=== PATIENT | male | born 1940 | race Caucasian/White ===

== ENCOUNTER → 2016-09-21 | Outpatient (CLI) | payer MEDICARE, MEDICAID ==
[2016-09-21 13:27] LABS: MEAN CORPUSCULAR HEMOGLOBIN 30.8 pg (27.0-33.0); MEAN CORPUSCULAR HGB CONC 32.4 g/dl (32.0-36.5); MEAN CORPUSCULAR VOLUME 94.9 fl (80.0-96.0); RED CELL DISTRIBUTION WIDTH 12.5 % (11.5-14.5); WHITE BLOOD COUNT 8.2 K/mm3 (4.0-10.0)
[2016-09-21 13:55] LABS: ALBUMIN 3.9 GM/DL (3.2-5.2); ALBUMIN/GLOBULIN RATIO 1.08 (1.00-1.93); ALKALINE PHOSPHATASE 96 U/L (45-117); ALT/SGPT 19 U/L (12-78); ANION GAP 10 MEQ/L (8-16); AST/SGOT 18 U/L (15-37); BILIRUBIN,TOTAL 0.4 MG/DL (0.2-1.0); BLOOD UREA NITROGEN 27 MG/DL (7-18); CALCIUM LEVEL 9.2 MG/DL (8.8-10.2); CARBON DIOXIDE LEVEL 30 MEQ/L (21-32); CHLORIDE LEVEL 99 MEQ/L (98-107); CHOLESTEROL LEVEL 175 MG/DL (<200); CREATININE FOR GFR 1.03 MG/DL (0.70-1.30); GLOMERULAR FILTRATION RATE > 60.0 (>42); GLUCOSE, FASTING 99 MG/DL (83-110); POTASSIUM SERUM 4.5 MEQ/L (3.5-5.1); SODIUM LEVEL 139 MEQ/L (136-145); TOTAL PROTEIN 7.5 GM/DL (6.4-8.2); TRIGLYCERIDES LEVEL 101 MG/DL (<150)
== END ==
LOC: M WUC 09:03
PROVIDERS: ATTEND Internal Medicine
DX: I10 Essential (primary) hypertension (principal); E78.5 Hyperlipidemia, unspecified

== ENCOUNTER → 2016-10-05 | Outpatient (CLI) | payer MEDICARE, MEDICAID ==
[2016-10-05 09:18] LABS: MEAN CORPUSCULAR HEMOGLOBIN 31.3 pg (27.0-33.0); MEAN CORPUSCULAR HGB CONC 34.1 g/dl (32.0-36.5); MEAN CORPUSCULAR VOLUME 91.9 fl (80.0-96.0); RED CELL DISTRIBUTION WIDTH 12.3 % (11.5-14.5); WHITE BLOOD COUNT 7.3 K/mm3 (4.0-10.0)
[2016-10-05 09:43] LABS: ALBUMIN 3.6 GM/DL (3.2-5.2); ALBUMIN/GLOBULIN RATIO 0.95 (1.00-1.93); ALKALINE PHOSPHATASE 101 U/L (45-117); ALT/SGPT 31 U/L (12-78); ANION GAP 7 MEQ/L (8-16); AST/SGOT 16 U/L (15-37); BILIRUBIN,TOTAL 0.4 MG/DL (0.2-1.0); BLOOD UREA NITROGEN 20 MG/DL (7-18); CALCIUM LEVEL 8.7 MG/DL (8.8-10.2); CARBON DIOXIDE LEVEL 31 MEQ/L (21-32); CHLORIDE LEVEL 101 MEQ/L (98-107); CHOLESTEROL LEVEL 143 MG/DL (<200); CREATININE FOR GFR 0.96 MG/DL (0.70-1.30); GLOMERULAR FILTRATION RATE > 60.0 (>42); GLUCOSE, FASTING 111 MG/DL (83-110); POTASSIUM SERUM 3.7 MEQ/L (3.5-5.1); SODIUM LEVEL 139 MEQ/L (136-145); TOTAL PROTEIN 7.4 GM/DL (6.4-8.2); TRIGLYCERIDES LEVEL 119 MG/DL (<150)
== END ==
LOC: M WUC 08:12
PROVIDERS: ATTEND Nurse Practitioner Family
DX: I10 Essential (primary) hypertension (principal); E78.5 Hyperlipidemia, unspecified; J44.9 Chronic obstructive pulmonary disease, unspecified; E66.9 Obesity, unspecified

== ENCOUNTER → 2017-09-30 | Outpatient (CLI) | payer MEDICARE, MEDICAID ==
[2017-09-30 09:15] LABS: ESTIMATED AVERAGE GLUCOSE 126 MG/DL (60-110)
[2017-09-30 09:19] LABS: HEMATOCRIT 44.7 % (42.0-52.0); HEMOGLOBIN 14.8 g/dl (14.0-18.0); MEAN CORPUSCULAR HEMOGLOBIN 30.8 pg (27.0-33.0); MEAN CORPUSCULAR HGB CONC 33.1 g/dl (32.0-36.5); MEAN CORPUSCULAR VOLUME 93.1 fl (80.0-96.0); PLATELET COUNT, AUTOMATED 296 10^3/uL (150-450); RED CELL DISTRIBUTION WIDTH 13.1 % (11.5-14.5); WHITE BLOOD COUNT 10.8 10^3/uL (4.0-10.0)
[2017-09-30 09:30] LABS: ALBUMIN 3.7 GM/DL (3.2-5.2); ALBUMIN/GLOBULIN RATIO 0.93 (1.00-1.93); ALKALINE PHOSPHATASE 91 U/L (45-117); ALT/SGPT 30 U/L (12-78); ANION GAP 7 MEQ/L (8-16); AST/SGOT 15 U/L (7-37); BILIRUBIN,TOTAL 0.4 MG/DL (0.2-1.0); BLOOD UREA NITROGEN 21 MG/DL (7-18); CALCIUM LEVEL 8.7 MG/DL (8.8-10.2); CARBON DIOXIDE LEVEL 31 MEQ/L (21-32); CHLORIDE LEVEL 100 MEQ/L (98-107); CHOLESTEROL LEVEL 183 MG/DL (<200); GLOMERULAR FILTRATION RATE > 60.0 (>42); GLUCOSE, FASTING 101 MG/DL (70-100); HDL CHOLESTEROL 50 MG/DL (>40); LDL CHOLESTEROL 101.8 MG/DL (<100); NON-HDL-C 133 MG/DL; PROSTATIC SPECIFIC AG MONITOR 0.35 NG/ML (< 4.0); SODIUM LEVEL 138 MEQ/L (136-145); TOTAL PROTEIN 7.7 GM/DL (6.4-8.2); TRIGLYCERIDES LEVEL 156 MG/DL (<150)
== END ==
LOC: M LAB 08:31
DX: I10 Essential (primary) hypertension (principal); R53.83 Other fatigue; E03.9 Hypothyroidism, unspecified
CPT/HCPCS: 71046

== ENCOUNTER → 2019-05-25 | Outpatient (CLI) | payer MEDICARE ==
--- NOTE | 2019-05-25 13:57 | REP ---
Two-view chest: 05/25/2019. Indication: Preoperative assessment. Comparison: 09/30/2017. Findings: The lungs are clear. There is no pleural effusion or pneumothorax. Cardiac silhouette is at the upper limits of normal but otherwise unremarkable. Multilevel degenerative sequelae of the thoracic spine are present. Exaggerated thoracic kyphosis is additionally noted. Impression: No acute cardiopulmonary process. Electronically Signed by Todd Hilliard DO 05/25/2019 01:48 P
[2019-05-25 13:58] LABS: HEMATOCRIT 44.9 % (42.0-52.0); HEMOGLOBIN 14.7 g/dl (13.5-17.5); MEAN CORPUSCULAR HEMOGLOBIN 31.7 pg (27.0-33.0); MEAN CORPUSCULAR HGB CONC 32.7 g/dl (32.0-36.5); PLATELET COUNT, AUTOMATED 309 10^3/uL (150-450); RED BLOOD COUNT 4.63 10^6/uL (4.30-6.10); WHITE BLOOD COUNT 10.1 10^3/uL (4.0-10.0)
[2019-05-25 14:09] LABS: INR 1.15; PROTHROMBIN TIME 14.4 SECONDS (11.8-14.0)
[2019-05-25 14:35] LABS: ALBUMIN 3.7 GM/DL (3.2-5.2); ALT/SGPT 28 U/L (12-78); BILIRUBIN,TOTAL 0.5 MG/DL (0.2-1.0); BLOOD UREA NITROGEN 32 MG/DL (7-18); CALCIUM LEVEL 9.2 MG/DL (8.8-10.2); CARBON DIOXIDE LEVEL 29 MEQ/L (21-32); CHLORIDE LEVEL 104 MEQ/L (98-107); CHOLESTEROL LEVEL 173 MG/DL (<200); CHOLESTEROL RISK RATIO 3.145 (<5); CREATININE FOR GFR 1.18 MG/DL (0.70-1.30); GLOMERULAR FILTRATION RATE > 60.0 (>42); GLUCOSE, FASTING 88 MG/DL (70-100); HDL CHOLESTEROL 55 MG/DL (>40); LDL CHOLESTEROL 95 MG/DL (<100); NON-HDL-C 118 MG/DL; POTASSIUM SERUM 4.4 MEQ/L (3.5-5.1); SODIUM LEVEL 139 MEQ/L (136-145); TOTAL PROTEIN 7.8 GM/DL (6.4-8.2); TRIGLYCERIDES LEVEL 117 MG/DL (<150)
--- NOTE | 2019-05-25 15:15 | ECGEPIP ---
[facility] Test Date: 2019-05-25 Pat Name: ALEXEI SALAZAR Department: Room: - Gender: Male Roving Department End Finder: CATIA : [id number] Requested By: Alla Hutton Order Number: [id number] Reading MD: Rani Hdez Measurements Intervals [place] Rate: 43 P: 53 MA: 172 QRS: 23 QRSD: 100 T: 17 QT: 452 QTc: 383 Interpretive Statements SINUS BRADYCARDIA SIMILAR TO 09/30/17 Electronically Signed on 05-25-2019 15:15:37 EST by Rani Hdez
== END ==
LOC: M LAB 12:46
PROVIDERS: ATTEND Family Medicine
DX: I10 Essential (primary) hypertension (principal); Z79.01 Long term (current) use of anticoagulants

== ENCOUNTER → 2020-05-16 | Outpatient (CLI) | payer MEDICARE ==
[2020-05-16 10:21] LABS: HEMATOCRIT 43.3 % (42.0-52.0); HEMOGLOBIN 14.1 g/dl (13.5-17.5); MEAN CORPUSCULAR HEMOGLOBIN 31.2 pg (27.0-33.0); MEAN CORPUSCULAR HGB CONC 32.6 g/dl (32.0-36.5); MEAN CORPUSCULAR VOLUME 95.8 fl (80.0-96.0); PLATELET COUNT, AUTOMATED 292 10^3/uL (150-450); RED BLOOD COUNT 4.52 10^6/uL (4.30-6.10); WHITE BLOOD COUNT 7.9 10^3/uL (4.0-10.0)
[2020-05-16 10:48] LABS: HEMOGLOBIN A1c 5.8 %
[2020-05-16 11:06] LABS: ALBUMIN 3.9 GM/DL (3.2-5.2); ALT/SGPT 22 U/L (12-78); BILIRUBIN,TOTAL 0.5 MG/DL (0.2-1.0); BLOOD UREA NITROGEN 18 MG/DL (7-18); CARBON DIOXIDE LEVEL 29 MEQ/L (21-32); CHLORIDE LEVEL 102 MEQ/L (98-107); CHOLESTEROL LEVEL 164 MG/DL (<200); GLOMERULAR FILTRATION RATE > 60.0 (>42); GLUCOSE, FASTING 104 MG/DL (70-100); HDL CHOLESTEROL 50 MG/DL (>40); LDL CHOLESTEROL 86 MG/DL (<100); NON-HDL-C 114 MG/DL; POTASSIUM SERUM 4.1 MEQ/L (3.5-5.1); PROSTATIC SPECIFIC AG MONITOR 0.44 NG/ML (< 4.00); SODIUM LEVEL 137 MEQ/L (136-145); TOTAL PROTEIN 7.6 GM/DL (6.4-8.2); TRIGLYCERIDES LEVEL 142 MG/DL (<150)
[2020-05-16 11:20] LABS: TESTOSTERONE 95 NG/DL (241-827)
== END ==
LOC: M WUC 08:09
PROVIDERS: ATTEND Family Medicine
DX: I10 Essential (primary) hypertension (principal); R53.83 Other fatigue; E03.9 Hypothyroidism, unspecified; Z12.5 Encounter for screening for malignant neoplasm of prostate

== ENCOUNTER → 2021-08-22 | Outpatient (CLI) | payer MEDICARE ==
[2021-08-22 11:44] LABS: HEMATOCRIT 49.5 % (42.0-52.0); HEMOGLOBIN 15.7 g/dl (13.5-17.5); MEAN CORPUSCULAR HEMOGLOBIN 30.8 pg (27.0-33.0); MEAN CORPUSCULAR HGB CONC 31.7 g/dl (32.0-36.5); MEAN CORPUSCULAR VOLUME 97.1 fl (80.0-96.0); PLATELET COUNT, AUTOMATED 355 10^3/uL (150-450); WHITE BLOOD COUNT 8.9 10^3/uL (4.0-10.0)
[2021-08-22 12:20] LABS: ALBUMIN 3.5 GM/DL (3.2-5.2); ALT/SGPT 32 U/L (12-78); BILIRUBIN,TOTAL 0.4 MG/DL (0.2-1.0); BLOOD UREA NITROGEN 18 MG/DL (7-18); CALCIUM LEVEL 9.2 MG/DL (8.8-10.2); CARBON DIOXIDE LEVEL 31 MEQ/L (21-32); CHLORIDE LEVEL 102 MEQ/L (98-107); CHOLESTEROL LEVEL 144 MG/DL (<200); CHOLESTEROL RISK RATIO 3.428 (<5); CREATININE FOR GFR 0.86 MG/DL (0.70-1.30); GLOMERULAR FILTRATION RATE > 60.0 (>35); GLUCOSE, FASTING 118 MG/DL (70-100); HDL CHOLESTEROL 42 MG/DL (>40); LDL CHOLESTEROL 85 MG/DL (<100); NON-HDL-C 102 MG/DL; POTASSIUM SERUM 4.2 MEQ/L (3.5-5.1); PROSTATIC SPECIFIC AG MONITOR 0.59 NG/ML (< 4.00); SODIUM LEVEL 140 MEQ/L (136-145); TESTOSTERONE 144 NG/DL (241-827); TOTAL PROTEIN 7.8 GM/DL (6.4-8.2); TRIGLYCERIDES LEVEL 85 MG/DL (<150)
[2021-08-22 13:14] LABS: HEMOGLOBIN A1c 5.9 %
== END ==
LOC: M WUC 08:06
PROVIDERS: ATTEND Family Medicine
DX: I10 Essential (primary) hypertension (principal); R97.20 Elevated prostate specific antigen [PSA]

== ENCOUNTER 2021-11-30 10:24 | Inpatient (IN) | payer MEDICARE ==
[~2021-11-30] VITALS: Ht 172.7 cm; Wt 95.5 kg
[2021-11-30 11:14] LABS: BASO % 0.5 % (0.0-1.0); EOS # 0.1 10^3/uL (0.0-0.5); EOS % 1.3 % (0.0-3.0); HEMATOCRIT 45.5 % (42.0-52.0); HEMOGLOBIN 15.4 g/dl (13.5-17.5); LYMPH # 1.6 10^3/uL (1.5-5.0); LYMPH % 19.9 % (24.0-44.0); MEAN CORPUSCULAR HEMOGLOBIN 31.2 pg (27.0-33.0); MEAN CORPUSCULAR HGB CONC 33.8 g/dl (32.0-36.5); MEAN CORPUSCULAR VOLUME 92.3 fl (80.0-96.0); MONO # 0.5 10^3/uL (0.0-0.8); NEUTROPHILS # 5.7 10^3/uL (1.5-8.5); NEUTROPHILS % 71.9 % (36.0-66.0); PLATELET COUNT, AUTOMATED 280 10^3/uL (150-450); RED BLOOD COUNT 4.93 10^6/uL (4.30-6.10)
[2021-11-30] MEDS ORDERED: ISOVUE-370 76% 100ML VIAL As Ordered ONE (11:28)
[2021-11-30 11:33] LABS: INR 1.13; PARTIAL THROMBOPLASTIN TIME 31.1 SECONDS (25.9-37.0); PROTHROMBIN TIME 14.9 SECONDS (12.7-14.5)
[2021-11-30 11:41] LABS: CK-MB VALUE MASS 1.1 NG/ML (<3.6); MB/CK RELATIVE INDEX 2.34 (< OR =4)
[2021-11-30 11:50] LABS: BLOOD UREA NITROGEN 13 MG/DL (7-18); CALCIUM LEVEL 8.9 MG/DL (8.8-10.2); CARBON DIOXIDE LEVEL 27 MEQ/L (21-32); CHLORIDE LEVEL 103 MEQ/L (98-107); CREATININE FOR GFR 0.96 MG/DL (0.70-1.30); GLOMERULAR FILTRATION RATE > 60.0 (>35); GLUCOSE, FASTING 109 MG/DL (70-100); POTASSIUM SERUM 4.9 MEQ/L (3.5-5.1); SODIUM LEVEL 138 MEQ/L (136-145)
[2021-11-30] MEDS ORDERED: SIMV20TA22 PO (12:50)
[2021-11-30] MEDS ORDERED: LISI20TA37 PO (12:50)
[2021-11-30] MEDS ORDERED: ALBU8.5H INH (12:50)
[2021-11-30] MEDS ORDERED: ATEN50TA2 PO (12:50)
[2021-11-30] MEDS ORDERED: AMLO1TAB24 PO (12:50)
[2021-11-30] MEDS ORDERED: HOME MED LIST COMPLETE! XX SCH (12:55)
[2021-11-30] MEDS ORDERED: ATORVASTATIN 20 MG TAB PO ONE (14:05)
[2021-11-30] MEDS ORDERED: ASPIRIN 325 MG TAB PO ONE (14:05)
[2021-11-30] MEDS ORDERED: amLODIPine 5 MG TAB PO ONE (14:10)
[2021-11-30] MEDS ORDERED: REMDESIVIR 200 MG in NS 250 ML IV ONE (15:00)
[2021-11-30 15:07] LABS: INR 1.04
[2021-11-30 15:08] LABS: PARTIAL THROMBOPLASTIN TIME 30.7 SECONDS (25.9-37.0)
[2021-11-30 15:19] LABS: HEMOGLOBIN A1c 5.9 %
[2021-11-30 15:27] LABS: CHOLESTEROL RISK RATIO 2.72 (<5); THYROID STIMULATING HORMONE 1.83 uIU/ML (0.358-3.740)
[2021-11-30] MEDS ORDERED: SODIUM CHLORIDE 0.9% INJ 10 ML SYR IV ONE (17:00)
[2021-11-30 18:13] VITALS: BP 193/85
[2021-11-30 19:35] VITALS: BP 145/74
[2021-11-30] MEDS: ALBUTEROL 90 MCG/ACT 8GM HFA INHALER INH SCH (20:00)
[2021-11-30] MEDS: HEPARIN SOD (PORCINE) 5000UNITS/ML 1ML VIAL/SYRINGE SC SCH (21:22)
[2021-11-30 23:31] VITALS: BP 145/84
[2021-12-01 04:08] VITALS: BP 157/89
[2021-12-01] MEDS: HEPARIN SOD (PORCINE) 5000UNITS/ML 1ML VIAL/SYRINGE SC SCH (05:52)
[2021-12-01 06:37] VITALS: BP 184/81
[2021-12-01 07:10] LABS: HEMATOCRIT 48.2 % (42.0-52.0); HEMOGLOBIN 15.9 g/dl (13.5-17.5); MEAN CORPUSCULAR HEMOGLOBIN 29.9 pg (27.0-33.0); MEAN CORPUSCULAR VOLUME 90.6 fl (80.0-96.0); PLATELET COUNT, AUTOMATED 243 10^3/uL (150-450); RED BLOOD COUNT 5.32 10^6/uL (4.30-6.10); WHITE BLOOD COUNT 9.6 10^3/uL (4.0-10.0)
[2021-12-01 07:34] LABS: ALBUMIN 3.8 GM/DL (3.2-5.2); ALT/SGPT 20 U/L (12-78); BILIRUBIN,DIRECT 0.3 MG/DL (0.0-0.2); BLOOD UREA NITROGEN 13 MG/DL (7-18); CALCIUM LEVEL 9.7 MG/DL (8.8-10.2); CARBON DIOXIDE LEVEL 26 MEQ/L (21-32); CHLORIDE LEVEL 101 MEQ/L (98-107); CREATININE FOR GFR 0.92 MG/DL (0.70-1.30); GLOMERULAR FILTRATION RATE > 60.0 (>35); GLUCOSE, FASTING 113 MG/DL (70-100); MAGNESIUM LEVEL 2.1 MG/DL (1.8-2.4); PHOSPHORUS LEVEL 3.7 MG/DL (2.5-4.9); POTASSIUM SERUM 3.8 MEQ/L (3.5-5.1); SODIUM LEVEL 136 MEQ/L (136-145)
[2021-12-01 07:59] VITALS: BP 138/87
[2021-12-01] MEDS: ALBUTEROL 90 MCG/ACT 8GM HFA INHALER INH SCH ×4 (08:00→20:50)
[2021-12-01] MEDS: ASPIRIN 81MG ENTERIC TABLET PO SCH (08:18)
[2021-12-01] MEDS: ATORVASTATIN 20 MG TAB PO SCH (08:19)
[2021-12-01] MEDS: amLODIPine 5 MG TAB PO SCH (08:19)
[2021-12-01 11:52] VITALS: BP 140/68
[2021-12-01] MEDS: ENOXAPARIN 100MG/1ML SYRINGE (J1650 PER 10MG) SC SCH (13:37)
[2021-12-01 14:41] LABS: FOLATE 8.3 NG/ML (>5.4)
[2021-12-01] MEDS: SODIUM CHLORIDE 0.9% INJ 10 ML SYR IV SCH (15:43)
[2021-12-01] MEDS: REMDESIVIR 100 MG in NS 250 ML IV SCH (15:43)
[2021-12-01 16:17] VITALS: BP 149/67
[2021-12-01 20:00] VITALS: BP 133/70
[2021-12-02] VITALS (7 sets, daily range): BP systolic 131–163; BP diastolic 62–78
[2021-12-02] MEDS: ENOXAPARIN 100MG/1ML SYRINGE (J1650 PER 10MG) SC SCH (01:20)
[2021-12-02 08:01] LABS: HEMATOCRIT 46.7 % (42.0-52.0); HEMOGLOBIN 15.6 g/dl (13.5-17.5); MEAN CORPUSCULAR HEMOGLOBIN 30.3 pg (27.0-33.0); MEAN CORPUSCULAR HGB CONC 33.4 g/dl (32.0-36.5); MEAN CORPUSCULAR VOLUME 90.7 fl (80.0-96.0); PLATELET COUNT, AUTOMATED 198 10^3/uL (150-450); RED BLOOD COUNT 5.15 10^6/uL (4.30-6.10); WHITE BLOOD COUNT 9.1 10^3/uL (4.0-10.0)
[2021-12-02 08:19] LABS: INR 1.35; PROTHROMBIN TIME 17.1 SECONDS (12.7-14.5)
[2021-12-02 08:24] LABS: BLOOD UREA NITROGEN 15 MG/DL (7-18); CALCIUM LEVEL 9.4 MG/DL (8.8-10.2); CARBON DIOXIDE LEVEL 24 MEQ/L (21-32); CHLORIDE LEVEL 103 MEQ/L (98-107); CREATININE FOR GFR 0.82 MG/DL (0.70-1.30); GLOMERULAR FILTRATION RATE > 60.0 (>35); GLUCOSE, FASTING 100 MG/DL (70-100); MAGNESIUM LEVEL 2.2 MG/DL (1.8-2.4); POTASSIUM SERUM 3.2 MEQ/L (3.5-5.1); SODIUM LEVEL 137 MEQ/L (136-145)
[2021-12-02] MEDS: ALBUTEROL 90 MCG/ACT 8GM HFA INHALER INH SCH ×3 (08:27→13:46)
[2021-12-02] MEDS ORDERED: POTASSIUM CHLORIDE 10MEQ SR TABLET PO ONE (10:50)
[2021-12-02] MEDS ORDERED: APIXABAN 5 MG TAB (ELIQUIS) PO SCH (12:00)
[2021-12-02] MEDS ORDERED: ATOR1TAB21 PO (12:59)
[2021-12-02] MEDS ORDERED: ASPI-551 PO (12:59)
[2021-12-02] MEDS ORDERED: ELIQ5TAB PO (12:59)
[2021-12-02] MEDS ORDERED: BLOOKIT XX (13:02)
[2021-12-02] MEDS: ATORVASTATIN 20 MG TAB PO SCH (13:18)
[2021-12-02] MEDS: ASPIRIN 81MG ENTERIC TABLET PO SCH (13:18)
[2021-12-02] MEDS: amLODIPine 5 MG TAB PO SCH (13:18)
[2021-12-02] MEDS: REMDESIVIR 100 MG in NS 250 ML IV SCH (13:19)
[2021-12-02] MEDS: SODIUM CHLORIDE 0.9% INJ 10 ML SYR IV SCH (13:19)
== END 2021-12-02 15:10 | disposition home health service (06) | DRG 64 ==
LOC: M ED 10:24 → M ED INP 13:44 → ENRESERV 16:03 → M 4MAIN 18:19
PROVIDERS: ADMIT Internal Medicine; ATTEND Internal Medicine
PROC: XW033E5 Introduction of Remdesivir Anti-infective into Peripheral Vein, Percutaneous Approach, New Technology Group 5 (ICD-10-PCS; principal; 2021-11-30)
DX: I63.512 Cerebral infarction due to unspecified occlusion or stenosis of left middle cerebral artery (principal); U07.1 COVID-19; J96.10 Chronic respiratory failure, unspecified whether with hypoxia or hypercapnia; I16.1 Hypertensive emergency; I10 Essential (primary) hypertension; E78.5 Hyperlipidemia, unspecified; I48.91 Unspecified atrial fibrillation; I65.23 Occlusion and stenosis of bilateral carotid arteries; Z79.01 Long term (current) use of anticoagulants; Z79.82 Long term (current) use of aspirin; Z79.899 Other long term (current) drug therapy; R47.89 Other speech disturbances

== ENCOUNTER → 2022-05-17 | Outpatient (CLI) | payer MEDICARE ==
[~2022-05-17] MED LIST: ALBU8.5H INH; AMLO1TAB24 PO; ASPI-551 PO; ATEN50TA2 PO; ATOR1TAB21 PO; BLOOKIT XX; ELIQ5TAB PO; LISI20TA37 PO; SIMV20TA22 PO
[2022-05-17 12:33] LABS: HEMATOCRIT 43.7 % (42.0-52.0); HEMOGLOBIN 14.1 g/dl (13.5-17.5); MEAN CORPUSCULAR HEMOGLOBIN 32.3 pg (27.0-33.0); MEAN CORPUSCULAR HGB CONC 32.3 g/dl (32.0-36.5); MEAN CORPUSCULAR VOLUME 100.2 fl (80.0-96.0); PLATELET COUNT, AUTOMATED 301 10^3/uL (150-450); RED BLOOD COUNT 4.36 10^6/uL (4.30-6.10); WHITE BLOOD COUNT 10.3 10^3/uL (4.0-10.0)
[2022-05-17 14:13] LABS: ALBUMIN 3.5 GM/DL (3.2-5.2); ALT/SGPT 22 U/L (12-78); BILIRUBIN,TOTAL 0.7 MG/DL (0.2-1.0); BLOOD UREA NITROGEN 14 MG/DL (7-18); CALCIUM LEVEL 8.9 MG/DL (8.8-10.2); CARBON DIOXIDE LEVEL 31 MEQ/L (21-32); CHLORIDE LEVEL 102 MEQ/L (98-107); CHOLESTEROL LEVEL 132 MG/DL (<200); CHOLESTEROL RISK RATIO 2.588 (<5); GLOMERULAR FILTRATION RATE > 60.0 (>35); GLUCOSE, FASTING 93 MG/DL (70-100); HDL CHOLESTEROL 51 MG/DL (>40); LDL CHOLESTEROL 66 MG/DL (<100); NON-HDL-C 81 MG/DL; POTASSIUM SERUM 3.9 MEQ/L (3.5-5.1); PROSTATIC SPECIFIC AG MONITOR 0.36 NG/ML (< 4.00); SODIUM LEVEL 139 MEQ/L (136-145); TOTAL PROTEIN 7.4 GM/DL (6.4-8.2); TRIGLYCERIDES LEVEL 75 MG/DL (<150)
[2022-05-17 15:52] LABS: HEMOGLOBIN A1c 5.6 %
[2022-05-17 18:43] LABS: TOTAL 25(OH) VITAMIN D 20.4 NG/ML (30.0-100.0)
== END ==
LOC: M WUC 10:32
PROVIDERS: ATTEND Family Medicine
DX: E11.9 Type 2 diabetes mellitus without complications (principal); R53.83 Other fatigue; R97.20 Elevated prostate specific antigen [PSA]

== ENCOUNTER → 2022-08-13 | Outpatient (CLI) | payer MEDICARE ==
[2022-08-13 11:56] LABS: HEMOGLOBIN 14.7 g/dl (13.5-17.5); MEAN CORPUSCULAR HEMOGLOBIN 30.9 pg (27.0-33.0); MEAN CORPUSCULAR HGB CONC 32.7 g/dl (32.0-36.5); MEAN CORPUSCULAR VOLUME 94.5 fl (80.0-96.0); PLATELET COUNT, AUTOMATED 312 10^3/uL (150-450); RED BLOOD COUNT 4.76 10^6/uL (4.30-6.10); WHITE BLOOD COUNT 10.5 10^3/uL (4.0-10.0)
[2022-08-13 12:09] LABS: INR 1.09; PROTHROMBIN TIME 14.3 SECONDS (12.5-14.5)
[2022-08-13 12:31] LABS: ALBUMIN 3.9 G/DL (3.2-5.2); ALKALINE PHOSPHATASE 111 U/L (46-116); ALT/SGPT 14 U/L (7.0-40); AST/SGOT 18 U/L (<34); BLOOD UREA NITROGEN 19 MG/DL (9-23); CALCIUM LEVEL 9.5 MG/DL (8.3-10.6); CARBON DIOXIDE LEVEL 29 MMOL/L (20-31); CHLORIDE LEVEL 100 MMOL/L (98-107); CREATININE FOR GFR 0.77 MG/DL (0.70-1.30); GLOMERULAR FILTRATION RATE > 60.0 (>35); GLUCOSE, FASTING 108 MG/DL (74-106); POTASSIUM SERUM 3.9 MMOL/L (3.5-5.1); SODIUM LEVEL 138 MMOL/L (136-145); THYROID STIMULATING HORMONE 1.871 uIU/ML (0.55-4.78); TOTAL PROTEIN 7.6 G/DL (5.7-8.2)
== END ==
LOC: M RAD 11:13
PROVIDERS: ATTEND Family Medicine
DX: J44.9 Chronic obstructive pulmonary disease, unspecified (principal); E07.9 Disorder of thyroid, unspecified; Z12.5 Encounter for screening for malignant neoplasm of prostate; Z79.01 Long term (current) use of anticoagulants
CPT/HCPCS: 36415; 71046; 80053; 84443; 85027; 85610; 93005; G0103

== ENCOUNTER → 2022-08-22 | Outpatient (REF) | payer MEDICARE, MEDICAID ==
[2022-08-22 13:38] LABS: APPEARANCE, URINE MANUAL CLEAR (CLEAR); COLOR, URINE MANUAL DK YELLOW (YELLOW)
[2022-08-22 13:40] LABS: BILIRUBIN, URINE MANUAL 2+ (NEGATIVE); GLUCOSE, URINE (UA) MANUAL NEGATIVE (NEGATIVE); KETONE, URINE MANUAL 1+ mg/dL (NEGATIVE); NITRITE, URINE MANUAL NEGATIVE (NEGATIVE); PROTEIN, URINE MANUAL TRACE mg/dL (NEGATIVE); UROBILINOGEN, URINE MANUAL 4 MG mg/dl (NORMAL)
[2022-08-22 13:41] LABS: BLOOD URINE MANUAL TRACE (NEGATIVE); LEUKOCYTE ESTERASE, URINE MAN TRACE (NEGATIVE)
[2022-08-22 14:47] LABS: BACTERIA, URINE SMALL AMOUNT; HYALINE CAST, URINE NONE SEEN /lpf (0-1); MUCUS, URINE MOD AMOUNT (NEGATIVE); SQUAMOUS EPITHELIAL CELL URINE SMALL AMOUNT /hpf (SMALL AMT)
== END ==
LOC: M SMT 13:02
PROVIDERS: ATTEND Physician Assistant
DX: R82.89 Other abnormal findings on cytological and histological examination of urine (principal); R31.0 Gross hematuria

== ENCOUNTER → 2022-09-05 | Outpatient (CLI) | payer MEDICARE, MEDICAID ==
[~2022-09-05] MED LIST changes: +ISOVUE-370 76% 100ML VIAL As Ordered ONE
== END ==
LOC: M RAD 07:32
PROVIDERS: ATTEND Physician Assistant
DX: R31.9 Hematuria, unspecified (principal)
CPT/HCPCS: 74178; Q9967

== ENCOUNTER → 2022-09-10 | Outpatient (REF) | payer MEDICARE, MEDICAID ==
[~2022-09-10] MED LIST changes: -ISOVUE-370 76% 100ML VIAL As Ordered ONE
[2022-09-10 14:03] LABS: APPEARANCE, URINE HAZY (CLEAR); BACTERIA, URINE AUTO 1+ (NEGATIVE); BILIRUBIN, URINE AUTO NEGATIVE (NEGATIVE); BLOOD, URINE BLOOD 3+ (NEGATIVE); COLOR, URINE YELLOW (YELLOW); GLUCOSE, URINE (UA) AUTO NEGATIVE (NEGATIVE); KETONE, URINE AUTO NEGATIVE (NEGATIVE); LEUKOCYTE ESTERASE, URINE AUTO NEGATIVE (NEGATIVE); MUCUS, URINE SMALL (NEGATIVE); NITRITE, URINE AUTO NEGATIVE (NEGATIVE); PROTEIN, URINE AUTO NEGATIVE (NEGATIVE); RBC, URINE AUTO TNTC /HPF (0-3); SPECIFIC GRAVITY URINE AUTO 1.013 (1.002-1.035); SQUAMOUS EPITHELIAL CELL UR AU 0 /HPF (0-6); UROBILINOGEN, URINE AUTO 0.2 mg/dL (0.0-2.0); WBC, URINE AUTO 2 /HPF (0-3)
== END ==
LOC: M SMT 13:11
PROVIDERS: ATTEND Urology
DX: R31.0 Gross hematuria (principal)

== ENCOUNTER → 2022-09-20 | Outpatient (CLI) | payer MEDICARE, MEDICAID | LOC: M LABSMTC 09:17 | DX: Z01.812 Encounter for preprocedural laboratory examination (principal); Z20.822 Contact with and (suspected) exposure to COVID-19; K86.89 Other specified diseases of pancreas ==

== ENCOUNTER → 2022-10-09 | Outpatient (REF) | payer MEDICARE, MEDICAID ==
[~2022-10-09] MED LIST changes: +CITA20TA6 PO; +ERGO500029; +TAMS1CAP17
[2022-10-09 18:22] LABS: APPEARANCE, URINE CLEAR (CLEAR); BACTERIA, URINE AUTO NEGATIVE (NEGATIVE); BILIRUBIN, URINE AUTO NEGATIVE (NEGATIVE); BLOOD, URINE BLOOD NEGATIVE (NEGATIVE); COLOR, URINE YELLOW (YELLOW); GLUCOSE, URINE (UA) AUTO NEGATIVE (NEGATIVE); KETONE, URINE AUTO NEGATIVE (NEGATIVE); LEUKOCYTE ESTERASE, URINE AUTO NEGATIVE (NEGATIVE); NITRITE, URINE AUTO NEGATIVE (NEGATIVE); PROTEIN, URINE AUTO NEGATIVE (NEGATIVE); RBC, URINE AUTO 0 /HPF (0-3); SPECIFIC GRAVITY URINE AUTO 1.011 (1.002-1.035); SQUAMOUS EPITHELIAL CELL UR AU 0 /HPF (0-6); UROBILINOGEN, URINE AUTO 0.2 mg/dL (0.0-2.0); WBC, URINE AUTO 0 /HPF (0-3)
== END ==
LOC: M SMT 17:34
PROVIDERS: ATTEND Urology
DX: R31.0 Gross hematuria (principal)

== ENCOUNTER → 2022-10-10 | Outpatient (CLI) | payer MEDICARE, MEDICAID ==
[~2022-10-10] MED LIST changes: -CITA20TA6 PO
[2022-10-10 08:19] LABS: BLOOD UREA NITROGEN 26 MG/DL (9-23); CREATININE FOR GFR 0.93 MG/DL (0.70-1.30); GLOMERULAR FILTRATION RATE > 60.0 (>35)
== END ==
LOC: M LAB 07:01
PROVIDERS: ATTEND Nurse Practitioner Family
DX: C25.9 Malignant neoplasm of pancreas, unspecified (principal)

== ENCOUNTER → 2022-10-12 | Outpatient (CLI) | payer MEDICARE, MEDICAID ==
[~2022-10-12] MED LIST changes: +GASTROGRAFIN SOLUTION 30ML As Ordered ONE; +ISOVUE-370 76% 100ML VIAL As Ordered ONE
== END ==
LOC: M RAD 08:15
PROVIDERS: ATTEND Nurse Practitioner Family
DX: C25.9 Malignant neoplasm of pancreas, unspecified (principal)
CPT/HCPCS: 71260; 74178; Q9963; Q9967

== ENCOUNTER → 2022-10-18 | Outpatient (CLI) | payer MEDICARE, MEDICAID ==
[~2022-10-18] MED LIST changes: -GASTROGRAFIN SOLUTION 30ML As Ordered ONE; -ISOVUE-370 76% 100ML VIAL As Ordered ONE
== END ==
LOC: M ONCR 10:48
PROVIDERS: ATTEND General Practice
DX: C25.2 Malignant neoplasm of tail of pancreas (principal); I48.91 Unspecified atrial fibrillation; E78.5 Hyperlipidemia, unspecified; I10 Essential (primary) hypertension; Z79.01 Long term (current) use of anticoagulants; Z79.82 Long term (current) use of aspirin; Z79.899 Other long term (current) drug therapy; Z87.891 Personal history of nicotine dependence

== ENCOUNTER → 2022-11-14 | Outpatient (CLI) | payer MEDICARE, MEDICAID ==
[~2022-11-14] VITALS: Ht 165.1 cm; Wt 95.3 kg
[~2022-11-14] MED LIST changes: +CITA20TA6 PO; +LIDOCAINE 1% MDV 20ML VIAL As Ordered ONE; +MIDAZOLAM INJ 2MG/2ML VIAL As Ordered ONE; +NS 1,000 ML IV SCH; +ceFAZolin 2 GM/D5W 50 ML IV BAG As Ordered ONE; +ceFAZolin SOD 2 GM in IV 1 EA IV ONE; +diphenhydrAMINE 50MG/ML VIAL As Ordered ONE; +fentaNYL 100 MCG/2 ML INJECTION As Ordered ONE
[2022-11-14 15:00] VITALS: BP 121/68
== END ==
LOC: M IRPRO 10:28
PROVIDERS: ATTEND Internal Medicine Hematology & Oncology
DX: C25.9 Malignant neoplasm of pancreas, unspecified (principal)
CPT/HCPCS: 36561; 99152; 99153; C1769; C1788; C1894; J0690; J2250; J3010

== ENCOUNTER → 2022-12-11 | Outpatient (POV) | payer MEDICARE, MEDICAID ==
[~2022-12-11] VITALS: Ht 167.6 cm; Wt 95.0 kg
[~2022-12-11] MED LIST changes: +AMOX875T2 PO; -LIDOCAINE 1% MDV 20ML VIAL As Ordered ONE; -MIDAZOLAM INJ 2MG/2ML VIAL As Ordered ONE; -NS 1,000 ML IV SCH; -ceFAZolin 2 GM/D5W 50 ML IV BAG As Ordered ONE; -ceFAZolin SOD 2 GM in IV 1 EA IV ONE; -diphenhydrAMINE 50MG/ML VIAL As Ordered ONE; -fentaNYL 100 MCG/2 ML INJECTION As Ordered ONE
[2022-12-11 15:00] VITALS: BP 117/71
== END ==
LOC: M IRPOV 14:52
PROVIDERS: ATTEND Radiology Diagnostic Radiology
DX: Z45.2 Encounter for adjustment and management of vascular access device (principal)

== ENCOUNTER → 2023-01-04 | Outpatient (REF) | payer MEDICARE, MEDICAID | LOC: M SFHCWOUN 16:11 | PROVIDERS: ATTEND Surgery | DX: S21.101A Unspecified open wound of right front wall of thorax without penetration into thoracic cavity, initial encounter (principal); X58.XXXA Exposure to other specified factors, initial encounter; Y92.9 Unspecified place or not applicable; Y93.9 Activity, unspecified; Y99.9 Unspecified external cause status ==

== ENCOUNTER → 2023-01-07 | Outpatient (CLI) | payer MEDICARE, MEDICAID | LOC: M RAD 14:33 | PROVIDERS: ATTEND Surgery | DX: S21.101A Unspecified open wound of right front wall of thorax without penetration into thoracic cavity, initial encounter (principal) ==

== ENCOUNTER → 2023-02-07 | Outpatient (CLI) | payer MEDICARE, MEDICAID ==
[~2023-02-07] MED LIST changes: +CAPE1TAB2 PO; +XELO150T PO
== END ==
LOC: M ONCR 10:41
PROVIDERS: ATTEND General Practice
DX: C25.2 Malignant neoplasm of tail of pancreas (principal); Z87.891 Personal history of nicotine dependence; Z92.21 Personal history of antineoplastic chemotherapy; Z79.01 Long term (current) use of anticoagulants; Z79.899 Other long term (current) drug therapy; Z71.2 Person consulting for explanation of examination or test findings

== ENCOUNTER 2023-02-20 16:00 | Emergency (ER) | payer MEDICARE, MEDICAID ==
[~2023-02-20] VITALS: Ht 167.6 cm; Wt 85.5 kg
[2023-02-20 16:43] LABS: BASO # 0.1 10^3/uL (0.0-0.2); BASO % 0.6 % (0.0-1.0); EOS # 0.4 10^3/uL (0.0-0.5); HEMATOCRIT 33.1 % (42.0-52.0); HEMOGLOBIN 11.1 g/dl (13.5-17.5); LYMPH # 1.9 10^3/uL (1.5-5.0); LYMPH % 15.2 % (24.0-44.0); MEAN CORPUSCULAR HEMOGLOBIN 31.6 pg (27.0-33.0); MEAN CORPUSCULAR HGB CONC 33.5 g/dl (32.0-36.5); MEAN CORPUSCULAR VOLUME 94.3 fl (80.0-96.0); MONO # 1.3 10^3/uL (0.0-0.8); MONO % 10.1 % (2.0-8.0); NEUTROPHILS # 8.8 10^3/uL (1.5-8.5); NEUTROPHILS % 70.6 % (36.0-66.0); PLATELET COUNT, AUTOMATED 287 10^3/uL (150-450); RED BLOOD COUNT 3.51 10^6/uL (4.30-6.10); WHITE BLOOD COUNT 12.5 10^3/uL (4.0-10.0)
[2023-02-20 17:04] LABS: BLOOD UREA NITROGEN 24 MG/DL (9-23); CALCIUM LEVEL 9.1 MG/DL (8.3-10.6); CARBON DIOXIDE LEVEL 28 MMOL/L (20-31); CHLORIDE LEVEL 98 MMOL/L (98-107); CREATININE FOR GFR 1.15 MG/DL (0.70-1.30); GLOMERULAR FILTRATION RATE > 60.0 (>35); GLUCOSE, FASTING 98 MG/DL (74-106); POTASSIUM SERUM 4.4 MMOL/L (3.5-5.1); SODIUM LEVEL 134 MMOL/L (136-145)
[2023-02-20 18:00] VITALS: BP 138/81; TEMP 97.1; O2SAT 99
== END 2023-02-20 18:06 | disposition home or self-care (01) ==
LOC: EDBD 16:00 → M ED 16:00
DX: C25.9 Malignant neoplasm of pancreas, unspecified (principal); S09.90XA Unspecified injury of head, initial encounter; W18.30XA Fall on same level, unspecified, initial encounter; Y92.009 Unspecified place in unspecified non-institutional (private) residence as the place of occurrence of the external cause; Z87.891 Personal history of nicotine dependence; Z79.899 Other long term (current) drug therapy
CPT/HCPCS: 11042; 36415; G0463

== ENCOUNTER → 2023-03-14 | Outpatient (RCR) | payer MEDICARE, MEDICAID ==
[~2023-03-14] MED LIST changes: +ONDA8TAB8 PO; +PROC10TA5 PO
== END ==
LOC: M ONCR 02-15 09:54
PROVIDERS: ATTEND General Practice
DX: Z51.0 Encounter for antineoplastic radiation therapy (principal); C25.2 Malignant neoplasm of tail of pancreas

== ENCOUNTER 2023-03-28 10:10 | Emergency (ER) | payer MEDICARE, MEDICAID | END 2023-03-28 11:36 | disposition home or self-care (01) | LOC: M ED 10:10 | DX: S09.90XA Unspecified injury of head, initial encounter (principal); W19.XXXA Unspecified fall, initial encounter; I10 Essential (primary) hypertension; E78.5 Hyperlipidemia, unspecified; C25.9 Malignant neoplasm of pancreas, unspecified; Z86.79 Personal history of other diseases of the circulatory system; Z87.891 Personal history of nicotine dependence; Z79.52 Long term (current) use of systemic steroids; Z79.02 Long term (current) use of antithrombotics/antiplatelets; Z79.811 Long term (current) use of aromatase inhibitors; Z79.01 Long term (current) use of anticoagulants; Z79.899 Other long term (current) drug therapy ==

== ENCOUNTER 2023-04-16 09:44 | Outpatient (RCR) | payer MEDICARE, MEDICAID | END 2023-05-14 | LOC: M ONCR 09:44 | PROVIDERS: ATTEND General Practice | DX: Z51.0 Encounter for antineoplastic radiation therapy (principal); C25.2 Malignant neoplasm of tail of pancreas ==

== ENCOUNTER 2023-04-16 10:49 | Emergency (ER) | payer MEDICARE, MEDICAID ==
[~2023-04-16] VITALS: Ht 167.6 cm; Wt 83.6 kg
[2023-04-16 11:41] LABS: HEMATOCRIT 30.1 % (42.0-52.0); HEMOGLOBIN 10.2 g/dl (13.5-17.5); MEAN CORPUSCULAR HGB CONC 33.9 g/dl (32.0-36.5); MEAN CORPUSCULAR VOLUME 97.4 fl (80.0-96.0); PLATELET COUNT, AUTOMATED 144 10^3/uL (150-450); RED BLOOD COUNT 3.09 10^6/uL (4.30-6.10); WHITE BLOOD COUNT 6.3 10^3/uL (4.0-10.0)
[2023-04-16 11:56] LABS: INR 1.85; PROTHROMBIN TIME 20.9 SECONDS (12.5-14.5)
[2023-04-16 12:43] VITALS: TEMP 96.6; O2SAT 99
[2023-04-16 12:47] VITALS: BP 134/78
== END 2023-04-16 13:23 | disposition home or self-care (01) ==
LOC: M ED 10:49
DX: L89.319 Pressure ulcer of right buttock, unspecified stage (principal); L89.329 Pressure ulcer of left buttock, unspecified stage; I10 Essential (primary) hypertension; I48.91 Unspecified atrial fibrillation; C25.9 Malignant neoplasm of pancreas, unspecified; Z87.891 Personal history of nicotine dependence; Z79.01 Long term (current) use of anticoagulants; Z79.899 Other long term (current) drug therapy; Z79.51 Long term (current) use of inhaled steroids

== ENCOUNTER 2023-04-23 11:27 | Emergency (ER) | payer MEDICARE, MEDICAID ==
[~2023-04-23] VITALS: Ht 167.6 cm; Wt 86.3 kg
[2023-04-23 12:17] LABS: BASO % 0.7 % (0.0-1.0); EOS # 0.2 10^3/uL (0.0-0.5); EOS % 2.8 % (0.0-3.0); HEMATOCRIT 30.2 % (42.0-52.0); HEMOGLOBIN 9.9 g/dl (13.5-17.5); LYMPH # 0.6 10^3/uL (1.5-5.0); LYMPH % 10.3 % (24.0-44.0); MEAN CORPUSCULAR HEMOGLOBIN 33.1 pg (27.0-33.0); MEAN CORPUSCULAR HGB CONC 32.8 g/dl (32.0-36.5); MONO # 0.6 10^3/uL (0.0-0.8); NEUTROPHILS % 74.8 % (36.0-66.0); PLATELET COUNT, AUTOMATED 152 10^3/uL (150-450); RED BLOOD COUNT 2.99 10^6/uL (4.30-6.10); WHITE BLOOD COUNT 5.4 10^3/uL (4.0-10.0)
[2023-04-23 12:32] LABS: INR 1.72; PROTHROMBIN TIME 19.7 SECONDS (12.5-14.5)
[2023-04-23 12:33] LABS: PARTIAL THROMBOPLASTIN TIME 36.2 SECONDS (24.8-34.2)
[2023-04-23 12:54] LABS: ALBUMIN 2.8 G/DL (3.2-5.2); ALKALINE PHOSPHATASE 116 U/L (46-116); ALT/SGPT 24 U/L (7.0-40); AST/SGOT 25 U/L (<34); BILIRUBIN,DIRECT 0.5 MG/DL (<0.4); BILIRUBIN,TOTAL 0.9 MG/DL (0.3-1.2); BLOOD UREA NITROGEN 11 MG/DL (9-23); CALCIUM LEVEL 8.6 MG/DL (8.3-10.6); CARBON DIOXIDE LEVEL 26 MMOL/L (20-31); CHLORIDE LEVEL 107 MMOL/L (98-107); CREATININE FOR GFR 0.65 MG/DL (0.70-1.30); GLOMERULAR FILTRATION RATE > 60.0 (>35); GLUCOSE, FASTING 131 MG/DL (74-106); POTASSIUM SERUM 3.9 MMOL/L (3.5-5.1); SODIUM LEVEL 142 MMOL/L (136-145); TOTAL PROTEIN 5.9 G/DL (5.7-8.2)
[2023-04-23 15:35] VITALS: TEMP 96.6
[2023-04-23 15:53] VITALS: BP 154/75; O2SAT 99
== END 2023-04-23 16:04 | disposition home or self-care (01) ==
LOC: M ED 11:27 → EDBD 11:27 → M ED 16:04
DX: L89.319 Pressure ulcer of right buttock, unspecified stage (principal); L89.329 Pressure ulcer of left buttock, unspecified stage; R55 Syncope and collapse; Z79.899 Other long term (current) drug therapy; Z79.01 Long term (current) use of anticoagulants; I10 Essential (primary) hypertension; J44.9 Chronic obstructive pulmonary disease, unspecified; N40.0 Benign prostatic hyperplasia without lower urinary tract symptoms; Z85.07 Personal history of malignant neoplasm of pancreas; M54.9 Dorsalgia, unspecified; Z79.82 Long term (current) use of aspirin; Z79.51 Long term (current) use of inhaled steroids

== ENCOUNTER 2023-05-30 09:41 | Inpatient (IN) | payer MEDICARE, MEDICAID ==
[~2023-05-30] VITALS: Ht 165.1 cm; Wt 85.5 kg
[~2023-05-30 09:41] MED LIST changes: -ERGO500029; +ERGO500029 PO; -TAMS1CAP17; +TAMS1CAP17 PO
[2023-05-30 11:12] LABS: HEMATOCRIT 31.2 % (42.0-52.0); MEAN CORPUSCULAR HEMOGLOBIN 32.7 pg (27.0-33.0); MEAN CORPUSCULAR HGB CONC 32.1 g/dl (32.0-36.5); PLATELET COUNT, AUTOMATED 268 10^3/uL (150-450); RED BLOOD COUNT 3.06 10^6/uL (4.30-6.10); WHITE BLOOD COUNT 9.5 10^3/uL (4.0-10.0)
[2023-05-30 11:29] LABS: BLOOD UREA NITROGEN 11 MG/DL (9-23); CALCIUM LEVEL 8.2 MG/DL (8.3-10.6); CARBON DIOXIDE LEVEL 27 MMOL/L (20-31); CHLORIDE LEVEL 104 MMOL/L (98-107); GLOMERULAR FILTRATION RATE > 60.0 (>35); GLUCOSE, FASTING 117 MG/DL (74-106); POTASSIUM SERUM 3.9 MMOL/L (3.5-5.1); SODIUM LEVEL 139 MMOL/L (136-145)
[2023-05-30] MEDS ORDERED: MED REC IN PROGRESS XX SCH (15:00)
[2023-05-30] MEDS ORDERED: ACETAMINOPHEN TAB 650MG DOSE (2X325MG) PO PRN (15:30)
[2023-05-30] MEDS ORDERED: MOM 30ML SUSPENSION UDC PO PRN (15:30)
[2023-05-30] MEDS ORDERED: ONDA8TAB8 PO (16:39)
[2023-05-30] MEDS ORDERED: ELIQ5TAB PO (16:46)
[2023-05-30] MEDS ORDERED: ASPI81TA26 PO (16:47)
[2023-05-30] MEDS ORDERED: ATOR1TAB21 PO (16:48)
[2023-05-30] MEDS ORDERED: HOME MED LIST COMPLETE! XX SCH (16:55)
[2023-05-30 17:20] VITALS: BP 151/72; TEMP 97.3; O2SAT 98
[2023-05-30] MEDS ORDERED: ONDANSETRON 4MG ORAL DISINTEGRATING TAB PO PRN (18:35)
[2023-05-30] MEDS: DOCUSATE SODIUM 100MG CAPSULE PO SCH (19:41)
[2023-05-30] MEDS: NYSTATIN 100,000 UNITS/GM TOPICAL PWD 15GM TOP SCH (19:44)
[2023-05-30] MEDS: ALBUTEROL 90 MCG/ACT 8GM HFA INHALER INH SCH (20:45)
[2023-05-30 20:50] VITALS: BP 150/73; TEMP 97.5; O2SAT 98
[2023-05-30] MEDS ORDERED: ENOXAPARIN 40MG/0.4ML SYRINGE (J1650 PER 10MG) SC SCH (21:00)
[2023-05-31 05:54] VITALS: BP 128/68; TEMP 97.5; O2SAT 95
[2023-05-31 06:01] LABS: HEMATOCRIT 27.3 % (42.0-52.0); HEMOGLOBIN 8.9 g/dl (13.5-17.5); MEAN CORPUSCULAR HEMOGLOBIN 32.5 pg (27.0-33.0); MEAN CORPUSCULAR HGB CONC 32.6 g/dl (32.0-36.5); MEAN CORPUSCULAR VOLUME 99.6 fl (80.0-96.0); PLATELET COUNT, AUTOMATED 215 10^3/uL (150-450); RED BLOOD COUNT 2.74 10^6/uL (4.30-6.10); WHITE BLOOD COUNT 9.2 10^3/uL (4.0-10.0)
[2023-05-31 06:21] LABS: BLOOD UREA NITROGEN 10 MG/DL (9-23); CALCIUM LEVEL 7.6 MG/DL (8.3-10.6); CARBON DIOXIDE LEVEL 28 MMOL/L (20-31); CHLORIDE LEVEL 108 MMOL/L (98-107); CREATININE FOR GFR 0.56 MG/DL (0.70-1.30); GLOMERULAR FILTRATION RATE > 60.0 (>35); GLUCOSE, FASTING 105 MG/DL (74-106); POTASSIUM SERUM 3.5 MMOL/L (3.5-5.1); SODIUM LEVEL 144 MMOL/L (136-145)
[2023-05-31] MEDS: TAMSULOSIN 0.4 MG CAP PO SCH (08:04)
[2023-05-31] MEDS: NYSTATIN 100,000 UNITS/GM TOPICAL PWD 15GM TOP SCH ×2 (08:04→21:52)
[2023-05-31] MEDS: DOCUSATE SODIUM 100MG CAPSULE PO SCH ×2 (08:04→21:52)
[2023-05-31] MEDS: CitaloPRAM (CeleXA) 20 MG TAB PO SCH (08:04)
[2023-05-31] MEDS: ATORVASTATIN 20 MG TAB PO SCH (08:04)
[2023-05-31] MEDS ORDERED: ASPIRIN 81MG ENTERIC TABLET PO SCH (09:00)
[2023-05-31] MEDS: ALBUTEROL 90 MCG/ACT 8GM HFA INHALER INH SCH ×4 (09:35→19:04)
[2023-05-31 14:00] VITALS: BP 144/82; TEMP 97.3; O2SAT 97
[2023-05-31 21:40] VITALS: BP 128/64; TEMP 97.5; O2SAT 96
[2023-06-01 05:40] VITALS: BP 145/79; TEMP 97.2; O2SAT 100
[2023-06-01 06:08] LABS: HEMATOCRIT 29.6 % (42.0-52.0); HEMOGLOBIN 9.5 g/dl (13.5-17.5); MEAN CORPUSCULAR HEMOGLOBIN 32.1 pg (27.0-33.0); MEAN CORPUSCULAR HGB CONC 32.1 g/dl (32.0-36.5); PLATELET COUNT, AUTOMATED 227 10^3/uL (150-450); RED BLOOD COUNT 2.96 10^6/uL (4.30-6.10); WHITE BLOOD COUNT 11.5 10^3/uL (4.0-10.0)
[2023-06-01 06:42] LABS: BLOOD UREA NITROGEN 12 MG/DL (9-23); CALCIUM LEVEL 7.8 MG/DL (8.3-10.6); CARBON DIOXIDE LEVEL 26 MMOL/L (20-31); CHLORIDE LEVEL 108 MMOL/L (98-107); CREATININE FOR GFR 0.51 MG/DL (0.70-1.30); GLOMERULAR FILTRATION RATE > 60.0 (>35); GLUCOSE, FASTING 100 MG/DL (74-106); POTASSIUM SERUM 3.7 MMOL/L (3.5-5.1); SODIUM LEVEL 141 MMOL/L (136-145)
[2023-06-01] MEDS: ALBUTEROL 90 MCG/ACT 8GM HFA INHALER INH SCH ×4 (08:22→19:13)
[2023-06-01] MEDS: TAMSULOSIN 0.4 MG CAP PO SCH (08:29)
[2023-06-01] MEDS: CitaloPRAM (CeleXA) 20 MG TAB PO SCH (08:29)
[2023-06-01] MEDS: ENOXAPARIN 40MG/0.4ML SYRINGE (J1650 PER 10MG) SC SCH (08:29)
[2023-06-01] MEDS: ATORVASTATIN 20 MG TAB PO SCH (08:29)
[2023-06-01] MEDS: DOCUSATE SODIUM 100MG CAPSULE PO SCH ×2 (08:29→20:06)
[2023-06-01] MEDS: NYSTATIN 100,000 UNITS/GM TOPICAL PWD 15GM TOP SCH ×2 (08:30→20:06)
[2023-06-02 05:10] VITALS: BP 147/85; TEMP 97.3; O2SAT 96
[2023-06-02 06:26] LABS: HEMATOCRIT 27.5 % (42.0-52.0); MEAN CORPUSCULAR HEMOGLOBIN 32.6 pg (27.0-33.0); MEAN CORPUSCULAR HGB CONC 32.7 g/dl (32.0-36.5); MEAN CORPUSCULAR VOLUME 99.6 fl (80.0-96.0); PLATELET COUNT, AUTOMATED 220 10^3/uL (150-450); RED BLOOD COUNT 2.76 10^6/uL (4.30-6.10)
[2023-06-02 06:44] LABS: BLOOD UREA NITROGEN 11 MG/DL (9-23); CALCIUM LEVEL 7.6 MG/DL (8.3-10.6); CARBON DIOXIDE LEVEL 26 MMOL/L (20-31); CHLORIDE LEVEL 110 MMOL/L (98-107); CREATININE FOR GFR 0.56 MG/DL (0.70-1.30); GLOMERULAR FILTRATION RATE > 60.0 (>35); GLUCOSE, FASTING 101 MG/DL (74-106); POTASSIUM SERUM 3.6 MMOL/L (3.5-5.1); SODIUM LEVEL 143 MMOL/L (136-145)
[2023-06-02] MEDS: ALBUTEROL 90 MCG/ACT 8GM HFA INHALER INH SCH ×4 (08:07→19:19)
[2023-06-02] MEDS: NYSTATIN 100,000 UNITS/GM TOPICAL PWD 15GM TOP SCH ×2 (09:43→20:42)
[2023-06-02] MEDS: CitaloPRAM (CeleXA) 20 MG TAB PO SCH (09:43)
[2023-06-02] MEDS: TAMSULOSIN 0.4 MG CAP PO SCH (09:43)
[2023-06-02] MEDS: ENOXAPARIN 40MG/0.4ML SYRINGE (J1650 PER 10MG) SC SCH (09:43)
[2023-06-02] MEDS: ATORVASTATIN 20 MG TAB PO SCH (09:43)
[2023-06-02] MEDS: DOCUSATE SODIUM 100MG CAPSULE PO SCH ×2 (09:43→20:38)
[2023-06-02 20:40] VITALS: BP 142/84; TEMP 97.5; O2SAT 97
[2023-06-03 04:20] VITALS: BP 135/95; TEMP 97.5; O2SAT 94
[2023-06-03 05:32] LABS: HEMATOCRIT 27.6 % (42.0-52.0); MEAN CORPUSCULAR HEMOGLOBIN 32.6 pg (27.0-33.0); MEAN CORPUSCULAR HGB CONC 32.6 g/dl (32.0-36.5); PLATELET COUNT, AUTOMATED 212 10^3/uL (150-450); RED BLOOD COUNT 2.76 10^6/uL (4.30-6.10); WHITE BLOOD COUNT 8.9 10^3/uL (4.0-10.0)
[2023-06-03 06:06] LABS: BLOOD UREA NITROGEN 11 MG/DL (9-23); CALCIUM LEVEL 7.7 MG/DL (8.3-10.6); CARBON DIOXIDE LEVEL 30 MMOL/L (20-31); CHLORIDE LEVEL 108 MMOL/L (98-107); CREATININE FOR GFR 0.55 MG/DL (0.70-1.30); GLOMERULAR FILTRATION RATE > 60.0 (>35); GLUCOSE, FASTING 101 MG/DL (74-106); POTASSIUM SERUM 3.5 MMOL/L (3.5-5.1); SODIUM LEVEL 143 MMOL/L (136-145)
[2023-06-03] MEDS: ALBUTEROL 90 MCG/ACT 8GM HFA INHALER INH SCH ×4 (07:43→20:47)
[2023-06-03] MEDS: TAMSULOSIN 0.4 MG CAP PO SCH (08:46)
[2023-06-03] MEDS: ENOXAPARIN 40MG/0.4ML SYRINGE (J1650 PER 10MG) SC SCH (08:46)
[2023-06-03] MEDS: ATORVASTATIN 20 MG TAB PO SCH (08:46)
[2023-06-03] MEDS: CitaloPRAM (CeleXA) 20 MG TAB PO SCH (08:46)
[2023-06-03] MEDS: NYSTATIN 100,000 UNITS/GM TOPICAL PWD 15GM TOP SCH ×2 (08:46→21:07)
[2023-06-03] MEDS: DOCUSATE SODIUM 100MG CAPSULE PO SCH ×2 (08:46→21:07)
[2023-06-04 05:30] VITALS: BP 141/94; TEMP 97.3; O2SAT 98
[2023-06-04 06:20] LABS: HEMATOCRIT 28.9 % (42.0-52.0); HEMOGLOBIN 9.3 g/dl (13.5-17.5); MEAN CORPUSCULAR HEMOGLOBIN 32.3 pg (27.0-33.0); MEAN CORPUSCULAR HGB CONC 32.2 g/dl (32.0-36.5); MEAN CORPUSCULAR VOLUME 100.3 fl (80.0-96.0); PLATELET COUNT, AUTOMATED 201 10^3/uL (150-450); RED BLOOD COUNT 2.88 10^6/uL (4.30-6.10); WHITE BLOOD COUNT 8.5 10^3/uL (4.0-10.0)
[2023-06-04] MEDS: ALBUTEROL 90 MCG/ACT 8GM HFA INHALER INH SCH ×4 (07:34→20:33)
[2023-06-04] MEDS: CitaloPRAM (CeleXA) 20 MG TAB PO SCH (09:10)
[2023-06-04] MEDS: ATORVASTATIN 20 MG TAB PO SCH (09:10)
[2023-06-04] MEDS: DOCUSATE SODIUM 100MG CAPSULE PO SCH ×2 (09:10→20:26)
[2023-06-04] MEDS: TAMSULOSIN 0.4 MG CAP PO SCH (09:10)
[2023-06-04] MEDS: NYSTATIN 100,000 UNITS/GM TOPICAL PWD 15GM TOP SCH ×2 (09:11→20:25)
[2023-06-04] MEDS: ENOXAPARIN 40MG/0.4ML SYRINGE (J1650 PER 10MG) SC SCH (09:11)
[2023-06-05 05:25] VITALS: BP 127/79; TEMP 97.1; O2SAT 95
[2023-06-05] MEDS: ALBUTEROL 90 MCG/ACT 8GM HFA INHALER INH SCH ×4 (07:43→19:08)
[2023-06-05] MEDS: DOCUSATE SODIUM 100MG CAPSULE PO SCH ×2 (09:00→21:00)
[2023-06-05] MEDS: CitaloPRAM (CeleXA) 20 MG TAB PO SCH (10:21)
[2023-06-05] MEDS: ATORVASTATIN 20 MG TAB PO SCH (10:21)
[2023-06-05] MEDS: TAMSULOSIN 0.4 MG CAP PO SCH (10:21)
[2023-06-05] MEDS: ENOXAPARIN 40MG/0.4ML SYRINGE (J1650 PER 10MG) SC SCH (10:22)
[2023-06-05] MEDS: NYSTATIN 100,000 UNITS/GM TOPICAL PWD 15GM TOP SCH ×2 (10:22→21:11)
[2023-06-05] MEDS ORDERED: OLANZapine 2.5MG TABLET PO ONE (17:55)
[2023-06-06 05:10] VITALS: BP 128/78; TEMP 97.3; O2SAT 95
[2023-06-06] MEDS: ALBUTEROL 90 MCG/ACT 8GM HFA INHALER INH SCH ×4 (07:14→19:14)
[2023-06-06] MEDS: TAMSULOSIN 0.4 MG CAP PO SCH (08:25)
[2023-06-06] MEDS: CitaloPRAM (CeleXA) 20 MG TAB PO SCH (08:25)
[2023-06-06] MEDS: ATORVASTATIN 20 MG TAB PO SCH (08:25)
[2023-06-06] MEDS: DOCUSATE SODIUM 100MG CAPSULE PO SCH ×3 (08:25→22:14)
[2023-06-06] MEDS: NYSTATIN 100,000 UNITS/GM TOPICAL PWD 15GM TOP SCH ×2 (08:26→22:15)
[2023-06-06] MEDS: ENOXAPARIN 40MG/0.4ML SYRINGE (J1650 PER 10MG) SC SCH (08:26)
[2023-06-07 05:00] VITALS: BP 128/76; TEMP 97.5; O2SAT 95
[2023-06-07] MEDS: ALBUTEROL 90 MCG/ACT 8GM HFA INHALER INH SCH ×4 (07:07→20:13)
[2023-06-07] MEDS: CitaloPRAM (CeleXA) 20 MG TAB PO SCH (08:24)
[2023-06-07] MEDS: ENOXAPARIN 40MG/0.4ML SYRINGE (J1650 PER 10MG) SC SCH (08:24)
[2023-06-07] MEDS: ATORVASTATIN 20 MG TAB PO SCH (08:24)
[2023-06-07] MEDS: TAMSULOSIN 0.4 MG CAP PO SCH (08:24)
[2023-06-07] MEDS: DOCUSATE SODIUM 100MG CAPSULE PO SCH ×2 (08:24→20:15)
[2023-06-07] MEDS: NYSTATIN 100,000 UNITS/GM TOPICAL PWD 15GM TOP SCH ×2 (08:25→20:16)
[2023-06-08 06:00] VITALS: BP 138/91; TEMP 97.2; O2SAT 94
[2023-06-08] MEDS: ALBUTEROL 90 MCG/ACT 8GM HFA INHALER INH SCH ×4 (07:18→19:13)
[2023-06-08] MEDS: NYSTATIN 100,000 UNITS/GM TOPICAL PWD 15GM TOP SCH ×2 (08:45→21:24)
[2023-06-08] MEDS: DOCUSATE SODIUM 100MG CAPSULE PO SCH ×2 (08:46→21:24)
[2023-06-08] MEDS: CitaloPRAM (CeleXA) 20 MG TAB PO SCH (08:46)
[2023-06-08] MEDS: ENOXAPARIN 40MG/0.4ML SYRINGE (J1650 PER 10MG) SC SCH (08:46)
[2023-06-08] MEDS: ATORVASTATIN 20 MG TAB PO SCH (08:46)
[2023-06-08] MEDS: TAMSULOSIN 0.4 MG CAP PO SCH (08:46)
[2023-06-08] MEDS: QUEtiapine FUMARATE 12.5 MG HALF-TAB PO SCH (21:24)
[2023-06-09 06:00] VITALS: BP 133/99; TEMP 97.5; O2SAT 96
[2023-06-09] MEDS: ALBUTEROL 90 MCG/ACT 8GM HFA INHALER INH SCH ×4 (07:28→20:18)
[2023-06-09] MEDS: CitaloPRAM (CeleXA) 20 MG TAB PO SCH (11:58)
[2023-06-09] MEDS: DOCUSATE SODIUM 100MG CAPSULE PO SCH ×2 (11:58→22:06)
[2023-06-09] MEDS: ENOXAPARIN 40MG/0.4ML SYRINGE (J1650 PER 10MG) SC SCH (11:58)
[2023-06-09] MEDS: TAMSULOSIN 0.4 MG CAP PO SCH (11:58)
[2023-06-09] MEDS: NYSTATIN 100,000 UNITS/GM TOPICAL PWD 15GM TOP SCH ×2 (11:59→22:06)
[2023-06-09] MEDS: ATORVASTATIN 20 MG TAB PO SCH (11:59)
[2023-06-09] MEDS: QUEtiapine FUMARATE 12.5 MG HALF-TAB PO SCH (21:00)
[2023-06-10 04:40] VITALS: BP 121/73; TEMP 97.7; O2SAT 94
[2023-06-10] MEDS: ALBUTEROL 90 MCG/ACT 8GM HFA INHALER INH SCH ×4 (07:54→19:35)
[2023-06-10] MEDS: ENOXAPARIN 40MG/0.4ML SYRINGE (J1650 PER 10MG) SC SCH (09:01)
[2023-06-10] MEDS: DOCUSATE SODIUM 100MG CAPSULE PO SCH ×2 (09:01→20:12)
[2023-06-10] MEDS: CitaloPRAM (CeleXA) 20 MG TAB PO SCH (09:01)
[2023-06-10] MEDS: ATORVASTATIN 20 MG TAB PO SCH (09:02)
[2023-06-10] MEDS: NYSTATIN 100,000 UNITS/GM TOPICAL PWD 15GM TOP SCH ×2 (09:02→20:11)
[2023-06-10] MEDS: TAMSULOSIN 0.4 MG CAP PO SCH (09:02)
[2023-06-10] MEDS: QUEtiapine FUMARATE 12.5 MG HALF-TAB PO SCH (20:12)
[2023-06-11 04:50] VITALS: BP 124/71; TEMP 97.9; O2SAT 94
[2023-06-11 07:30] VITALS: BP 139/71; TEMP 98.8
[2023-06-11] MEDS: ALBUTEROL 90 MCG/ACT 8GM HFA INHALER INH SCH ×2 (07:43→19:22)
[2023-06-11] MEDS: DOCUSATE SODIUM 100MG CAPSULE PO SCH ×2 (09:00→19:39)
[2023-06-11] MEDS: CitaloPRAM (CeleXA) 20 MG TAB PO SCH (09:03)
[2023-06-11] MEDS: TAMSULOSIN 0.4 MG CAP PO SCH (09:03)
[2023-06-11] MEDS: ATORVASTATIN 20 MG TAB PO SCH (09:03)
[2023-06-11] MEDS: ENOXAPARIN 40MG/0.4ML SYRINGE (J1650 PER 10MG) SC SCH (09:04)
[2023-06-11] MEDS: NYSTATIN 100,000 UNITS/GM TOPICAL PWD 15GM TOP SCH ×2 (09:05→19:40)
[2023-06-11 14:00] VITALS: BP 137/67; TEMP 98.1
[2023-06-11] MEDS: QUEtiapine FUMARATE 12.5 MG HALF-TAB PO SCH (19:39)
[2023-06-12 05:34] VITALS: BP 136/63; TEMP 98.2; O2SAT 95
[2023-06-12] MEDS: ALBUTEROL 90 MCG/ACT 8GM HFA INHALER INH SCH ×2 (06:01→20:09)
[2023-06-12] MEDS: NYSTATIN 100,000 UNITS/GM TOPICAL PWD 15GM TOP SCH ×2 (09:23→19:42)
[2023-06-12] MEDS: TAMSULOSIN 0.4 MG CAP PO SCH (09:24)
[2023-06-12] MEDS: ATORVASTATIN 20 MG TAB PO SCH (09:24)
[2023-06-12] MEDS: DOCUSATE SODIUM 100MG CAPSULE PO SCH ×2 (09:24→19:42)
[2023-06-12] MEDS: ENOXAPARIN 40MG/0.4ML SYRINGE (J1650 PER 10MG) SC SCH (09:24)
[2023-06-12] MEDS: CitaloPRAM (CeleXA) 20 MG TAB PO SCH (09:24)
[2023-06-12 15:48] LABS: BASO % 0.5 % (0.0-1.0); EOS # 0.1 10^3/uL (0.0-0.5); EOS % 1.2 % (0.0-3.0); HEMATOCRIT 29.8 % (42.0-52.0); HEMOGLOBIN 9.4 g/dl (13.5-17.5); LYMPH % 12.9 % (24.0-44.0); MEAN CORPUSCULAR HEMOGLOBIN 32.2 pg (27.0-33.0); MEAN CORPUSCULAR HGB CONC 31.5 g/dl (32.0-36.5); MEAN CORPUSCULAR VOLUME 102.1 fl (80.0-96.0); MONO # 0.6 10^3/uL (0.0-0.8); MONO % 8.1 % (2.0-8.0); NEUTROPHILS # 5.9 10^3/uL (1.5-8.5); PLATELET COUNT, AUTOMATED 156 10^3/uL (150-450); RED BLOOD COUNT 2.92 10^6/uL (4.30-6.10); WHITE BLOOD COUNT 7.7 10^3/uL (4.0-10.0)
[2023-06-12 16:21] LABS: ALBUMIN 1.8 G/DL (3.2-5.2); ALKALINE PHOSPHATASE 124 U/L (46-116); ALT/SGPT 33 U/L (7.0-40); AST/SGOT 42 U/L (<34); BILIRUBIN,TOTAL 0.4 MG/DL (0.3-1.2); BLOOD UREA NITROGEN 17 MG/DL (9-23); CALCIUM LEVEL 7.3 MG/DL (8.3-10.6); CARBON DIOXIDE LEVEL 31 MMOL/L (20-31); CHLORIDE LEVEL 105 MMOL/L (98-107); CREATININE FOR GFR 0.63 MG/DL (0.70-1.30); GLOMERULAR FILTRATION RATE > 60.0 (>35); GLUCOSE, FASTING 107 MG/DL (74-106); POTASSIUM SERUM 3.8 MMOL/L (3.5-5.1); SODIUM LEVEL 140 MMOL/L (136-145); TOTAL PROTEIN 5.4 G/DL (5.7-8.2)
[2023-06-12] MEDS: GASTROGRAFIN SOLUTION 30ML PO SCH ×2 (16:35→17:02)
[2023-06-12 16:39] LABS: CA19-9 TUMOR MARKER,CARBOHYDRA 4.4 U/ML (<35.0)
[2023-06-12] MEDS ORDERED: ISOVUE-370 76% 100ML VIAL As Ordered ONE (17:14)
[2023-06-12] MEDS: QUEtiapine FUMARATE 12.5 MG HALF-TAB PO SCH (19:42)
[2023-06-13 06:00] VITALS: BP 134/63; TEMP 98.8; O2SAT 95
[2023-06-13] MEDS: ALBUTEROL 90 MCG/ACT 8GM HFA INHALER INH SCH ×2 (07:28→19:24)
[2023-06-13] MEDS: ATORVASTATIN 20 MG TAB PO SCH (09:28)
[2023-06-13] MEDS: CitaloPRAM (CeleXA) 20 MG TAB PO SCH (09:28)
[2023-06-13] MEDS: TAMSULOSIN 0.4 MG CAP PO SCH (09:28)
[2023-06-13] MEDS: ENOXAPARIN 40MG/0.4ML SYRINGE (J1650 PER 10MG) SC SCH (09:28)
[2023-06-13] MEDS: DOCUSATE SODIUM 100MG CAPSULE PO SCH ×2 (09:29→21:12)
[2023-06-13] MEDS: NYSTATIN 100,000 UNITS/GM TOPICAL PWD 15GM TOP SCH ×2 (09:29→21:12)
[2023-06-13] MEDS: QUEtiapine FUMARATE 12.5 MG HALF-TAB PO SCH (21:12)
[2023-06-14 06:25] VITALS: BP 122/68; TEMP 97.9; O2SAT 95
[2023-06-14] MEDS: ALBUTEROL 90 MCG/ACT 8GM HFA INHALER INH SCH ×2 (07:21→19:28)
[2023-06-14] MEDS: ATORVASTATIN 20 MG TAB PO SCH (09:23)
[2023-06-14] MEDS: CitaloPRAM (CeleXA) 20 MG TAB PO SCH (09:23)
[2023-06-14] MEDS: TAMSULOSIN 0.4 MG CAP PO SCH (09:23)
[2023-06-14] MEDS: DOCUSATE SODIUM 100MG CAPSULE PO SCH ×2 (09:23→21:06)
[2023-06-14] MEDS: ENOXAPARIN 40MG/0.4ML SYRINGE (J1650 PER 10MG) SC SCH (09:24)
[2023-06-14] MEDS: NYSTATIN 100,000 UNITS/GM TOPICAL PWD 15GM TOP SCH ×2 (09:24→21:07)
[2023-06-14] MEDS: QUEtiapine FUMARATE 12.5 MG HALF-TAB PO SCH (21:06)
[2023-06-15 06:00] VITALS: BP 124/71; TEMP 98.1; O2SAT 98
[2023-06-15] MEDS: ALBUTEROL 90 MCG/ACT 8GM HFA INHALER INH SCH ×2 (07:30→19:23)
[2023-06-15] MEDS: DOCUSATE SODIUM 100MG CAPSULE PO SCH ×2 (08:58→21:00)
[2023-06-15] MEDS: TAMSULOSIN 0.4 MG CAP PO SCH (08:58)
[2023-06-15] MEDS: ENOXAPARIN 40MG/0.4ML SYRINGE (J1650 PER 10MG) SC SCH (08:58)
[2023-06-15] MEDS: CitaloPRAM (CeleXA) 20 MG TAB PO SCH (08:58)
[2023-06-15] MEDS: ATORVASTATIN 20 MG TAB PO SCH (08:58)
[2023-06-15] MEDS: NYSTATIN 100,000 UNITS/GM TOPICAL PWD 15GM TOP SCH ×2 (08:59→21:39)
[2023-06-15 21:10] VITALS: BP 127/76; TEMP 98.1; O2SAT 97
[2023-06-15 21:38] VITALS: TEMP 97.1
[2023-06-15] MEDS: QUEtiapine FUMARATE 12.5 MG HALF-TAB PO SCH (21:39)
[2023-06-16 06:26] VITALS: BP 129/75; TEMP 97.9; O2SAT 95
[2023-06-16] MEDS: ALBUTEROL 90 MCG/ACT 8GM HFA INHALER INH SCH ×2 (07:21→19:50)
[2023-06-16] MEDS: CitaloPRAM (CeleXA) 20 MG TAB PO SCH (10:57)
[2023-06-16] MEDS: ATORVASTATIN 20 MG TAB PO SCH (10:57)
[2023-06-16] MEDS: TAMSULOSIN 0.4 MG CAP PO SCH (10:57)
[2023-06-16] MEDS: NYSTATIN 100,000 UNITS/GM TOPICAL PWD 15GM TOP SCH ×2 (10:58→21:39)
[2023-06-16] MEDS: ENOXAPARIN 40MG/0.4ML SYRINGE (J1650 PER 10MG) SC SCH (10:58)
[2023-06-16] MEDS: DOCUSATE SODIUM 100MG CAPSULE PO SCH ×2 (10:59→21:00)
[2023-06-16] MEDS: ASPIRIN 81MG ENTERIC TABLET PO SCH (19:01)
[2023-06-16 21:28] VITALS: BP 129/75; TEMP 97.3; O2SAT 94
[2023-06-16] MEDS: QUEtiapine FUMARATE 12.5 MG HALF-TAB PO SCH (21:39)
[2023-06-17 06:01] VITALS: BP 130/73; TEMP 97.8; O2SAT 94
[2023-06-17] MEDS: ALBUTEROL 90 MCG/ACT 8GM HFA INHALER INH SCH ×2 (07:09→20:02)
[2023-06-17] MEDS: TAMSULOSIN 0.4 MG CAP PO SCH (10:22)
[2023-06-17] MEDS: ASPIRIN 81MG ENTERIC TABLET PO SCH (10:22)
[2023-06-17] MEDS: DOCUSATE SODIUM 100MG CAPSULE PO SCH ×2 (10:22→20:52)
[2023-06-17] MEDS: CitaloPRAM (CeleXA) 20 MG TAB PO SCH (10:22)
[2023-06-17] MEDS: ATORVASTATIN 20 MG TAB PO SCH (10:22)
[2023-06-17] MEDS: ENOXAPARIN 40MG/0.4ML SYRINGE (J1650 PER 10MG) SC SCH (10:22)
[2023-06-17] MEDS: NYSTATIN 100,000 UNITS/GM TOPICAL PWD 15GM TOP SCH ×2 (10:23→20:55)
[2023-06-17 13:40] VITALS: BP 143/80; TEMP 97.5; O2SAT 96
[2023-06-17] MEDS: QUEtiapine FUMARATE 12.5 MG HALF-TAB PO SCH (20:52)
[2023-06-18 05:14] VITALS: BP 126/69; TEMP 97.7; O2SAT 96
[2023-06-18] MEDS: ALBUTEROL 90 MCG/ACT 8GM HFA INHALER INH SCH ×2 (07:38→19:17)
[2023-06-18] MEDS: CitaloPRAM (CeleXA) 20 MG TAB PO SCH (09:51)
[2023-06-18] MEDS: ASPIRIN 81MG ENTERIC TABLET PO SCH (09:51)
[2023-06-18] MEDS: ATORVASTATIN 20 MG TAB PO SCH (09:51)
[2023-06-18] MEDS: DOCUSATE SODIUM 100MG CAPSULE PO SCH ×2 (09:52→20:32)
[2023-06-18] MEDS: ENOXAPARIN 40MG/0.4ML SYRINGE (J1650 PER 10MG) SC SCH (09:52)
[2023-06-18] MEDS: NYSTATIN 100,000 UNITS/GM TOPICAL PWD 15GM TOP SCH ×2 (09:52→20:33)
[2023-06-18] MEDS: TAMSULOSIN 0.4 MG CAP PO SCH (09:52)
[2023-06-18] MEDS ORDERED: MORPHINE 10MG/0.5ML ORAL CONCENTRATE SOLUTION U/D SL PRN (18:20)
[2023-06-18] MEDS ORDERED: HYOSCYAMINE SULFATE 0.125 MG SUBL TABLET PO PRN (18:20)
[2023-06-18] MEDS ORDERED: LORazepam 1 MG TAB PO PRN (18:20)
[2023-06-18] MEDS: QUEtiapine FUMARATE 12.5 MG HALF-TAB PO SCH (20:32)
[2023-06-19 06:00] VITALS: BP 129/73; TEMP 97.9; O2SAT 99
[2023-06-19] MEDS: ALBUTEROL 90 MCG/ACT 8GM HFA INHALER INH SCH (07:06)
[2023-06-19] MEDS: TAMSULOSIN 0.4 MG CAP PO SCH (08:04)
[2023-06-19] MEDS: CitaloPRAM (CeleXA) 20 MG TAB PO SCH (08:04)
[2023-06-19] MEDS: DOCUSATE SODIUM 100MG CAPSULE PO SCH (08:04)
[2023-06-19] MEDS: NYSTATIN 100,000 UNITS/GM TOPICAL PWD 15GM TOP SCH (08:05)
[2023-06-19] MEDS ORDERED: MORP1SOL5 PO (12:17)
[2023-06-19] MEDS ORDERED: HYOS125TA PO (12:17)
[2023-06-19] MEDS ORDERED: ATIV1TAB10 PO (12:17)
[2023-06-19] MEDS ORDERED: QUET1TAB17 PO (12:17)
== END 2023-06-19 13:15 | disposition hospice, home (50) | DRG 884 ==
LOC: M ED 09:41 → M ED INP 15:30 → ENRESERV 16:53 → M MSPAV 17:22
PROVIDERS: ADMIT Student in an Organized Health Care Education/Training Program; ATTEND Internal Medicine
DX: R54 Age-related physical debility (principal); I62.03 Nontraumatic chronic subdural hemorrhage; C25.2 Malignant neoplasm of tail of pancreas; G96.08 Other cranial cerebrospinal fluid leak; I48.21 Permanent atrial fibrillation; I10 Essential (primary) hypertension; N40.0 Benign prostatic hyperplasia without lower urinary tract symptoms; R29.6 Repeated falls; E78.5 Hyperlipidemia, unspecified; F32.A Depression, unspecified; R41.0 Disorientation, unspecified; Z51.5 Encounter for palliative care; Z66 Do not resuscitate; Z79.01 Long term (current) use of anticoagulants; Z79.82 Long term (current) use of aspirin; Z79.899 Other long term (current) drug therapy; Z92.3 Personal history of irradiation; Z92.21 Personal history of antineoplastic chemotherapy; Z86.73 Personal history of transient ischemic attack (TIA), and cerebral infarction without residual deficits